=== PATIENT | male | born 1970 | race Caucasian/White ===

== ENCOUNTER 2016-11-13 19:44 | Emergency (ER) | payer OTHER ==
[~2016-11-13] VITALS: Ht 180.3 cm; Wt 112.2 kg
[2016-11-13] MEDS ORDERED: PERCOCET 5/31 TABLET PO (20:08)
[2016-11-13 21:07] VITALS: BP 148/95
== END 2016-11-13 21:08 | disposition home or self-care (01) ==
LOC: EME 19:44
DX: S50.812A Abrasion of left forearm, initial encounter (principal); S50.811A Abrasion of right forearm, initial encounter; S80.212A Abrasion, left knee, initial encounter; S80.211A Abrasion, right knee, initial encounter; S90.512A Abrasion, left ankle, initial encounter; V28.4XXA Motorcycle driver injured in noncollision transport accident in traffic accident, initial encounter; Y92.410 Unspecified street and highway as the place of occurrence of the external cause
CPT/HCPCS: 99281; 99284